=== PATIENT | male | born 1995 | race Caucasian/White ===

== ENCOUNTER 2016-09-15 07:09 | Emergency (ER) | payer OTHER ==
--- NOTE | 2016-09-15 08:55 | RAD ---
Examination: 2 views of the bilateral hips and frontal view of the pelvis History: History of fall off a skateboard, hurts to walk, pain in the posterior right hip Comparison: None available Findings: The bilateral femoral heads are within the acetabula. There is no obvious acute fracture or dislocation identified. Impression: No acute osseous findings
--- NOTE | 2016-09-15 09:01 | PHYS DOC ---
General Chief Complaint: HIP PAIN Stated Complaint: RT HIP PAIN Time Seen by MD: 07:21 Source: patient Exam Limitations: no limitations Problems: History of Present Illness Initial Comments Pt is 20/M to ED c/o right hip pain. Pt states last night he fell off skateboard to his right hip. No head trauma/ LOC/syncope/neck pain, pt has had right hip pain and popping with walking today on outside of his hip. No leg weakness/numbness/tingling/radiating sx, pt has abrasions on all extremities various stages healing pt states they are fine doesn't want them looked at. Ambulatory no limp. Pt thought his hip dislocated b/c of popping. Onset: yesterday Severity: moderate Pain/Injury Location: right hip Method of Injury: fell, sports injury Modifying Factors: worse with jarring, worse with movement, improves with rest Past Medical History Medical History: no pertinent history Surgical History: noncontributory Social History Smoker: non-smoker Alcohol: none Drugs: none Review of Systems Constitutional: denies chills, denies fever Respiratory: denies cough, denies shortness of breath Cardiovascular: denies chest pain, denies palpitations Gastrointestinal: denies nausea, denies vomiting Genitourinary: denies frequency, denies hematuria Musculoskeletal: see HPI Psychiatric/Neurological: see HPI Physical Exam General Appearance: WD/WN, no apparent distress HEENT: normal ENT inspection Neck: non-tender, supple Cardiovascular/Respiratory: normal peripheral pulses, no respiratory distress Back: no CVA tenderness, no vertebral tenderness Hips: right hip other (swelling noted over lateral hip no bony TTP. FABERE neg ) Neurologic/Tendon: normal sensation, normal motor functions, normal tendon functions, responds to pain, no evidence tendon injury Psychiatric: alert, oriented x 3 Skin: normal color, warm/dry (abrasions as described above) Orders, Labs, Meds PATIENT: LEIDY MARTINEZ ACCOUNT: [id number] : 1995 LOCATION: ER AGE: 20 SEX: M EXAM STATUS: REG ER ORD. PHYSICIAN: RICARDO WRIGHT DO REASON: fall, R hip pain PROCEDURE: HIP BILATERAL WITH PELVIS Examination: 2 views of the bilateral hips and frontal view of the pelvis History: History of fall off a skateboard, hurts to walk, pain in the posterior right hip Comparison: None available Findings: The bilateral femoral heads are within the acetabula. There is no obvious acute fracture or dislocation identified. Impression: No acute osseous findings DICTATED AND SIGNED BY: KAITLYN LEE MD DATE: 09/15/16 0850 CC: CARRIE SORIANO MD; RICARDO WRIGHT DO ~ I discussed tx plan, pt expressed agreement/understanding Departure Time of Disposition: 09:05 Disposition: 01 HOME, SELF-CARE Diagnosis: Right hip contusion, Patient Instructions: Abrasion, Pstj-uv-[id number], Contusion, Boyn-dy-Vbpo, Iliotibial Band Syndrome with Rehab-SportsMed, RICE - Routine Care for Injuries , [id number] Additional Instructions: RICE, see handout. Work excuse today/tomorrow if needed. OTC tylenol/ibuprofen/neosporin as needed. Follow up with your doctor in one week if no better. Return to ED with new or changing symptoms. RICARDO WRIGHT DO September 15, 2016 09:01
[2016-09-15 09:20] VITALS: BP 139/55
== END 2016-09-15 09:20 | disposition home or self-care (01) ==
LOC: ER 07:09
DX: S70.01XA Contusion of right hip, initial encounter (principal); V00.131A Fall from skateboard, initial encounter; Y93.51 Activity, roller skating (inline) and skateboarding; Y92.89 Other specified places as the place of occurrence of the external cause; Y99.8 Other external cause status
CPT/HCPCS: 73521; 99284

== ENCOUNTER 2017-05-02 14:12 | Emergency (ER) | payer OTHER ==
[~2017-05-02] VITALS: Ht 167.6 cm; Wt 56.7 kg
--- NOTE | 2017-05-02 15:29 | ED.ADGEN ---
Past History Past Medical History: No Pertinent History Past Surgical History: Tonsillectomy, Other Alcohol Use: Occasionally Drug Use: Cocaine, Marijuana, Other Adult General Chief Complaint Chief Complaint Head injury/facial fracture HPI HPI Patient is a 21 male who presents with head and facial injury after falling during skateboarding incident earlier this morning. Patient ended on right side of his face. Denies loss of consciousness. Reports initially feeling dazed and nosebleed Swelling around right orbit. No eye pain or loss of vision. No neck pain. No nausea vomiting. No other acute symptoms or complaints. Review of Systems Review of Systems Review symptoms as per history of present illness. All other review symptoms are negative. All other systems were reviewed and found to be within normal limits, except as documented in this note. Allergies Allergies Allergies Coded Allergies Type Severity Reaction Last Updated Verified Penicillins Allergy Unknown 09/15/16 Yes Physical Exam Physical Exam Constitutional: Well developed, well nourished, no acute distress, non-toxic appearance. [] HENT: Normocephalic, Dry blood in right nares, right infraorbital maxillary swelling, light infraorbital bruising,, bilateral external ears normal,no hemotympanum hour bloody otorrhea, oropharynx moist, no dental injury. [] Eyes: PERRLA, EOMI,structure ocular muscles intact. [] Neck: Normal range of motion, no midline tenderness. [] Cardiovascular:Heart rate regular rhythm, no murmur [] Lungs & Thorax: Bilateral breath sounds clear to auscultation [] Extremities: No tenderness, no cyanosis, no clubbing, ROM intact, no edema. [] Neurologic: Alert and oriented X 3, normal motor function, normal sensory function, no focal deficits noted. [] Psychologic: Affect normal, judgement normal, mood normal. [] Current Patient Data Vital Signs Vital Signs Date Time Temp Pulse Resp B/P (MAP) Pulse Ox O2 Delivery O2 Flow Rate FiO2 05/02/17 16:10 78 20 112/55 (74) 98 Room Air 05/02/17 14:12 97.9 EKG EKG [] Radiology/Procedures Radiology/Procedures [CT maxillofacial/head: Orbital and maxillary fractures and amount identified per radiology report] Course & Med Decision Making Course & Med Decision Making Pertinent Labs and Imaging studies reviewed. (See chart for details) [Patient with multiple facial bone fractures. Antibiotics, pain medication given in the ED. Patient instructed follow-up with oral maxillofacial surgeon and ENT later this week. ] Final Impression Final Impression [#1 orbital wall fracture #2 sinus fracture #3 concussion] Problems: Dragon Disclaimer Dragon Disclaimer This electronic medical record was generated, in whole or in part, using a voice recognition dictation system. NOA SAMUEL DO May 02, 2017 15:29
--- NOTE | 2017-05-02 15:43 | RAD ---
CT head and maxillofacial without contrast 05/02/2017 Indication: Fall while skating Comparison: None available Technique: Multiple axial noncontrast CT images of the head were obtained from the skull base through the vertex. Findings: The ventricles, sulci and basal cisterns are within normal limits. Narvaez-white matter differentiation is normal. There is no acute intracranial hemorrhage. There is no mass, mass effect or midline shift. Posterior fossa is within normal limits. Sellar and suprasellar cistern appear normal. There is a nondisplaced fracture involving the right inferior orbital wall. There is a nondisplaced fracture involving the lateral orbital wall. The lamina papyracea is intact. There is subcutaneous emphysema within the orbit, especially along the orbital floor. There is a comminuted and displaced fracture involving the anterior inferior wall of the right maxilla as well as the lateral wall of the maxilla. Extensive subcutaneous gas is identified in the right store merchandiser and buccinator spaces. There is subcutaneous gas along the right malar soft tissues. No radiopaque foreign densities are identified. The graft axilla and mandible are intact. There is deviation of the nasal septum to the right. There is moderate opacification of the right maxillary sinus with hyperattenuating material suggestive of blood products. Globes are intact. Extraocular muscles are intact. Impression: 1. No acute intracranial hemorrhage. 2. Comminuted fractures involving the schmidt of the right anterior and lateral maxillary sinus as well as inferior and lateral orbital schmidt, as detailed above. Hyperattenuating material within the right maxillary sinus is compatible with blood products. PQRS Compliance Statement: One or more of the following individualized dose reduction techniques were utilized for this examination: 1. Automated exposure control 2. Adjustment of the mA and/or kV according to patient size 3. Use of iterative reconstruction technique
[2017-05-02 16:10] VITALS: BP 112/55
== END 2017-05-02 16:10 | disposition home or self-care (01) ==
LOC: ER 14:12
DX: S06.0X0A Concussion without loss of consciousness, initial encounter (principal); S02.81XA Fracture of other specified skull and facial bones, right side, initial encounter for closed fracture; V00.131A Fall from skateboard, initial encounter; F12.10 Cannabis abuse, uncomplicated; F14.10 Cocaine abuse, uncomplicated; Z88.0 Allergy status to penicillin; Y93.51 Activity, roller skating (inline) and skateboarding; Y99.8 Other external cause status; Y92.89 Other specified places as the place of occurrence of the external cause
CPT/HCPCS: 70450; 70486; 99284-25

== ENCOUNTER → 2018-09-29 | Outpatient (CLI) | payer OTHER | END | disposition home or self-care (01) | LOC: LAB 16:24 | PROVIDERS: ATTEND Physician Assistant | DX: Z00.00 Encounter for general adult medical examination without abnormal findings (principal) | CPT/HCPCS: 86703; 86706; 86803; 87340 ==

== ENCOUNTER 2019-09-14 10:09 | Emergency (ER) | payer OTHER ==
[~2019-09-14] VITALS: Ht 167.6 cm; Wt 57.0 kg
[2019-09-14 10:13] VITALS: BP 119/64
[2019-09-14] MEDS ORDERED: IBUPROFEN 600 MG TABLET. PO ONE (10:15)
--- NOTE | 2019-09-14 10:25 | PHYS DOC ---
Past History Past Medical History: No Pertinent History Past Surgical History: No Surgical History Alcohol Use: None Drug Use: None General Adult EDM: Chief Complaint: FOOT INJURY PAIN HPI: HPI: Patient is a 23-year-old male who presents to the emergency department for evaluation of a left foot injury which occurred yesterday. The patient states that he was skateboarding and somehow injured his distal forefoot, as it got caught under the skateboard when he was on a rail. He denies any other injury, or any other painful areas. Review of Systems: Review of Systems: Constitutional: Denies fever or chills Musculoskeletal: Denies back pain or joint pain Integument: Denies rash Neurologic: Denies headache, focal weakness or sensory changes Heart Score: Risk Factors: Risk Factors: DM, Current or recent (<one month) smoker, HTN, HLP, family history of CAD, obesity. Risk Scores: Score 0 - 3: 2.5% MACE over next 6 weeks - Discharge Home Score 4 - 6: 20.3% MACE over next 6 weeks - Admit for Clinical Observation Score 7 - 10: 72.7% MACE over next 6 weeks - Early Invasive Strategies Current Medications: Current Meds: Current Medications Medications (Trade) Dose Ordered Sig/Martha Start Time Stop Time Status Last Admin Dose Admin Ibuprofen (Motrin) 600 mg 1X ONCE 09/14/19 10:15 09/14/19 10:16 UNV Allergies: Allergies: Allergies Coded Allergies Type Severity Reaction Last Updated Verified Penicillins Allergy Unknown 09/15/16 Yes Physical Exam: PE: PHYSICAL EXAM: HEENT: Atruamatic NECK: Supple, normal ROM, non-tender. CARDIAC: Regular Rate and Rhythm LUNGS: Clear Bilaterally EXTREMITIES: There is tenderness to palpation mild soft tissue swelling noted on the lateral aspect of the left distal foot, including the left pinky toe, although there is no significant deformity or edema noted to the toe. The tenderness to palpation is mainly centered on the mid and distal metacarpal shaft of the left fourth and fifth digits. The remainder the foot, occluding the base of the fifth metatarsal, ankle, and remainder of the left lower extremity is atraumatic. The remainder the extremities are unremarkable and atraumatic with normal range of motion. Distal PMS is intact in all extremities including left foot. EKG: EKG: [] Radiology/Procedures: Radiology/Procedures: ER physician preliminary foot x-ray interpretation reveals a fracture of the distal metatarsal neck of the fourth metatarsal bone, without any other fracture noted. The does appear to be a subluxation or dislocation of the fifth digit, MTP joint. [] Course & Med Decision Making: Course & Med Decision Making Pertinent maging studies reviewed. (See chart for details) PROCEDURE NOTE: Pinky toe dislocation was reduced with manual traction, with clinically palpable reduction, improved range of motion noted to the left pinky toe. Repeat x-ray will be obtained. [] 11:15 AM: The patient will be placed in a walking shoe. Patient remains stable. I discussed test results, the need for close follow-up, and return precautions. Dragon Disclaimer: Dragon Disclaimer: This electronic medical record was generated, in whole or in part, using a voice recognition dictation system. Departure Departure: Impression: Primary Impression: Metatarsal fracture Additional Impression: Toe dislocation Disposition: 01 HOME/RESIDENCE PRIOR TO ADM Condition: STABLE Referrals: CARRIE SORIANO MD (PCP) Patient Instructions: Metatarsal Fracture, Undisplaced, RICE - Routine Care for Injuries, Toe Dislocation Additional Instructions: Follow-up with orthopedics at [facility], call [phone] to schedule an appointment. FLORIDALMA GARCIA MD September 14, 2019 10:25
--- NOTE | 2019-09-14 10:47 | RAD ---
EXAM: FOOT LEFT 3V 09/14/2019 10:10 AM CLINICAL INDICATION:Pain lateral aspect of forefoot COMPARISON:None TECHNIQUE:3 views of the left foot FINDINGS:There is a mildly angulated fracture of the fourth metatarsal neck. There is subluxation versus dislocation of the little toe MTP joint with moderate overlying soft tissue swelling. No other fracture or malalignment. Joint spaces are maintained. Type II accessory navicular. IMPRESSION: 1. Angulated fracture of the fourth metatarsal neck. 2. Abnormal alignment of the little toe MTP joint, subluxed versus dislocated, with overlying soft tissue swelling. Consider CT to better evaluate if needed. Electronically signed by: Nikole Whitehead MD (09/14/2019 10:43 AM) [id number]
--- NOTE | 2019-09-14 11:20 | RAD ---
TOES LEFT Clinical Indication: Left pinky toe post reduction. Comparison: Left foot, 3 views earlier same day. Findings: Redemonstrated transverse fracture of the distal neck of the fourth metatarsal. There is lateral angulation of the distal fracture fragment, unchanged. Soft tissue swelling at the fifth MTP joint. Interval reduction of dislocation of the fifth MTP. Joint spaces are maintained. The mineralization is normal. Redemonstrated accessory navicular. IMPRESSION: 1. Interval reduction of dislocated fifth MTP. 2. Redemonstrated fracture of the distal neck of the fourth metatarsal. Electronically signed by: Tc Cisneros MD (09/14/2019 11:17 AM) [id number]
== END 2019-09-14 11:14 | disposition home or self-care (01) ==
LOC: ER 10:09
DX: S93.125A Dislocation of metatarsophalangeal joint of left lesser toe(s), initial encounter (principal); S92.342A Displaced fracture of fourth metatarsal bone, left foot, initial encounter for closed fracture; X58.XXXA Exposure to other specified factors, initial encounter; Y93.51 Activity, roller skating (inline) and skateboarding; Y92.89 Other specified places as the place of occurrence of the external cause; Y99.8 Other external cause status
CPT/HCPCS: 28630; 73630; 73660; 99284